=== PATIENT | female | born 1980 | race Caucasian/White ===

== ENCOUNTER 2017-12-15 19:30 | Inpatient (IN) ==
[2017-12-15] MEDS ORDERED: 0.9 % Sodium Chloride 1,000 ML ONE (19:50)
[2017-12-15] MEDS ORDERED: 0.9 % Sodium Chloride 1,000 ML IV SCH (20:00)
[2017-12-15 20:04] LABS: Bilirubin,Urine Negative (Negative); Blood,Urine Small (Negative); Clarity,Urine Clear (Clear); Color,Urine Yellow (Yellow); Glucose,Urine (UA) >=1000 mg/dL (Normal); Ketones,Urine >=160 mg/dL (Negative); Leukocyte Esterase,Urine Negative (Negative); Nitrite,Urine Negative (Negative); PH,Urine 5.5 pH Units (5.0-8.0); Protein,Urine >=300 mg/dL (Neg-Trace); Specific Gravity,Urine > 1.030 (1.010-1.025); Urobilinogen,Urine Normal (Normal)
[2017-12-15 20:06] LABS: Bacteria,Urine None Seen per hpf (None-Few); Hyaline Casts,Urine None Seen per lpf (None-Few); Squamous Epithelial Cell,Urine Many per lpf (None-Few)
[2017-12-15 20:09] LABS: Hematocrit 49.7 % (35.3-44.9); Mean Corpuscular HGB Conc 30.2 g/dL (31.6-35.5); Mean Corpuscular Hemoglobin 24.8 pg (28.0-33.3); Mean Platelet Volume 10.1 fL (9.4-12.4); Platelet Count 466 K/mcL (140-400); Red Blood Count 6.06 M/mcL (3.82-4.97); Red Cell Distribution Width 14.6 % (11.5-14.5)
[2017-12-15] MEDS ORDERED: Ondansetron 4 MG/2 ML VIAL IVP ONE (20:14)
--- NOTE | 2017-12-15 20:29 | Emergency Department Note ---
Disposition Clinical Impression: DKA (diabetic ketoacidoses) Qualifiers: Diabetes mellitus type: type 2 Diabetes mellitus complication detail: without coma Qualified Code(s): E11.10 - Type 2 diabetes mellitus with ketoacidosis without coma Disposition: Home, Self-Care Condition: Good General Adult HPI - General Chief complaint: ED Shortness of Breath/Dyspnea Stated complaint: SHAWN, N/V/ General weakness Time Seen by Provider: 12/15/17 19:36 Source: family Mode of arrival: ambulatory Limitations: no limitations Nursing Notes Reviewed: Yes Vital Signs Reviewed: Yes - History of Present Illness HPI Narrative: Female patient presents emergency complaining of nausea vomiting generalized weakness for the past 2 days. Patient is a known diabetic. Takes insulin. However she is been in [place] for the past week and forgot her insulin. She did not want purchase anymore while she is gone so she went without it. She is also not taking any since she has been home for the past 2 days because she has been nauseated and vomiting. She does not check her blood sugar at home. She is on a sliding scale she takes a standardized dose. She does report a cough and some shortness of breath but denies any chest pain. She denies any rashes. She denies any abdominal pain at this time but the states that she did have some epigastric tenderness earlier. She denies any burning on urination or trouble defecating. Pain Scale: 7 - Related Data Home Medications Medication Instructions Recorded Confirmed Bupropion HCl [Wellbutrin Xl] 150 mg PO DAILY 12/15/17 12/15/17 Buspirone HCl [Buspar] 5 mg PO TID 12/15/17 12/15/17 Canagliflozin [Invokana] 100 mg PO DAILY 12/15/17 12/15/17 Citalopram [CeleXA] 40 mg PO DAILY 12/15/17 12/15/17 Gabapentin [Neurontin] 300 mg PO BID 12/15/17 12/15/17 Insulin Aspart Prot/Insuln Asp 70 unit SQ HS 12/15/17 12/15/17 [Novolog Mix 70-30 Vial] Insulin Aspart Prot/Insuln Asp 94 units SQ ONCE 12/15/17 12/15/17 [Novolog Mix 70-30 Vial] Lisinopril-HCTZ 20-12.5 [Prinzide 20 mg PO BID 12/15/17 12/15/17 20-12.5] Metoprolol [Lopressor] 25 mg PO BID 12/15/17 12/15/17 Multivitamin [Multivitamins] 1 each PO DAILY 12/15/17 12/15/17 Niacin [Slo-Niacin] 250 mg PO DAILY 12/15/17 12/15/17 Simvastatin [Zocor] 20 mg PO DAILY 12/15/17 12/15/17 metFORMIN [Glucophage] 1,000 mg PO BID 12/15/17 12/15/17 Allergies Allergy/AdvReac Type Severity Reaction Status Date / Time No Known Allergies Allergy Verified 12/15/17 23:30 All systems ED: reviewed and negative except as stated. Review of Systems: As Per HPI Past Medical History - Past Medical History Attestation: Yes The following information was validated with the patient. Source: patient Medical history: Reports: diabetes, hyperlipidemia, hypertension Psychiatric history: Reports: anxiety, depression - Social History Smoking Status: Former smoker Smokeless Tobacco Status: No Alcohol use: Reports: rarely Drug use: Reports: none Physical Exam - General Limitations: no limitations General appearance: alert, obese - Head Head exam: atraumatic, normocephalic, normal inspection - Eye Eye exam: Present: normal appearance, PERRL, EOMI - ENT ENT exam: normal exam, normal oropharynx, mucous membranes dry - Neck Neck exam: Present: normal inspection, full ROM, trachea midline - Chest Chest inspection: Present: normal inspection, symmetric chest wall rise - Respiratory Respiratory exam: Present: normal lung sounds bilaterally. Absent: respiratory distress, accessory muscle use - Cardiovascular Cardiovascular exam: Present: regular rate, normal rhythm, normal heart sounds - Abdominal Exam Abdominal exam: Present: soft, Non-Tender. Absent: tenderness, distention, guarding, rebound, rigidity, organomegaly, Pritchett's sign, Rovsing's sign, tenderness at McBurney's Point - Extremities Exam Extremities exam: Present: normal inspection, full ROM, normal capillary refill. Absent: tenderness, pedal edema - Neurological Exam Neurological exam: Present: alert, oriented X3 - Psychiatric Psychiatric exam: Present: normal affect, normal mood - Skin Skin exam: Present: warm, dry, intact, normal color, other (Patient does have appears to be sunburn to her chest.) Course Course Narrative: Regarding basic lab workup on patient. We will give patient 2 L of saline. It does appear the patient is likely in DKA. She states she has never been in DKA before. - Reevaluation(s) Reevaluation #1: Female patient has an anion gap of 26. She is in DKA. After 2 L of fluid and Zofran she states that she is feeling remarkably better. Insulin drip has been started. We will patient to the hospital this time. Time: 21:50 - Consultations Consultation #1: Dr Jang accepted patient in stable condition. He is requesting a chest x-ray due to patient's elevated white blood cell count. I have ordered this. Time: 21:51 Vital Signs Temperature 98.1 F 12/15/17 19:37 Pulse Rate 107 12/15/17 19:37 Respiratory Rate 26 12/15/17 19:37 Blood Pressure 178/112 12/15/17 19:37 O2 Sat by Pulse Oximetry 98 12/15/17 19:37 Temperature 97.6 F 12/15/17 23:15 Pulse Rate 102 12/15/17 23:15 Respiratory Rate 22 12/15/17 23:15 Blood Pressure 184/92 12/15/17 23:15 O2 Sat by Pulse Oximetry 99 12/15/17 23:15 Oxygen Delivery Oxygen Delivery Room Air Medical Decision Making - Medical Records Medical records reviewed: Yes I reviewed the patient's medical records. - Lab Data Lab results reviewed: Yes I reviewed the patient's lab results. Result diagrams: 12/15/17 19:58 12/15/17 22:17 Lab Results 12/15/17 12/15/17 12/15/17 Range/Units 19:42 19:42 19:52 WBC (4.3-11.1) K/mcL RBC (3.82-4.97) M/mcL Hgb (11.5-15.4) g/dL Hct (35.3-44.9) % MCV (83.0-100.0) fL MCH (28.0-33.3) pg MCHC (31.6-35.5) g/dL RDW (11.5-14.5) % Plt Count (140-400) K/mcL MPV (9.4-12.4) fL Sodium (136-145) mEq/L Potassium (3.5-5.1) mEq/L Chloride (98-107) mEq/L Carbon Dioxide (23-29) mEq/L BUN (6-20) mg/dL Creatinine (0.60-1.20) mg/dL Est GFR ( Amer) (> 60) Est GFR (Non-Af Amer) (> 60) BUN/Creatinine Ratio (6-26) Glucose (70-105) mg/dL POC Glucose 393 H (70-99) mg/dL Calculated Osmolality (280-300) Calcium (8.6-10.3) mg/dL Urine Color Yellow (Yellow) Urine Clarity Clear (Clear) Urine pH 5.5 (5.0-8.0) pH Units Ur Specific [place] > 1.030 H (1.010-1.025) Urine Protein >=300 H (Neg-Trace) mg/dL Urine Glucose (UA) >=1000 H (Normal) mg/dL Urine Ketones >=160 H (Negative) mg/dL Urine Blood Small H (Negative) Urine Nitrite Negative (Negative) Urine Bilirubin Negative (Negative) Urine Urobilinogen Normal (Normal) mg/dL Ur Leukocyte Esterase Negative (Negative) Urine Microscopic RBC 5-15 H (0-3) per hpf Urine Microscopic WBC 5-15 H (0-3) per hpf Ur Squamous Epith Cells Many H (None-Few) per lpf Urine Bacteria None Seen (None-Few) per hpf Hyaline Casts None Seen (None-Few) per lpf Urine Test Negative (Negative) 12/15/17 12/15/17 12/15/17 Range/Units 19:58 19:58 21:19 WBC 20.1 H (4.3-11.1) K/mcL RBC 6.06 H (3.82-4.97) M/mcL Hgb 15.0 (11.5-15.4) g/dL Hct 49.7 H (35.3-44.9) % MCV 82.0 L (83.0-100.0) fL MCH 24.8 L (28.0-33.3) pg MCHC 30.2 L (31.6-35.5) g/dL RDW 14.6 H (11.5-14.5) % Plt Count 466 H (140-400) K/mcL MPV 10.1 (9.4-12.4) fL Sodium 125 L (136-145) mEq/L Potassium 4.0 (3.5-5.1) mEq/L Chloride 95 L (98-107) mEq/L Carbon Dioxide 4 L* (23-29) mEq/L BUN 12 (6-20) mg/dL Creatinine 1.08 (0.60-1.20) mg/dL Est GFR ( Amer) > 60 (> 60) Est GFR (Non-Af Amer) 57 L (> 60) BUN/Creatinine Ratio 11 (6-26) Glucose 392 H (70-105) mg/dL POC Glucose 357 H (70-99) mg/dL Calculated Osmolality 276 L (280-300) Calcium 8.6 (8.6-10.3) mg/dL Urine Color (Yellow) Urine Clarity (Clear) Urine pH (5.0-8.0) pH Units Ur Specific [place] (1.010-1.025) Urine Protein (Neg-Trace) mg/dL Urine Glucose (UA) (Normal) mg/dL Urine Ketones (Negative) mg/dL Urine Blood (Negative) Urine Nitrite (Negative) Urine Bilirubin (Negative) Urine Urobilinogen (Normal) mg/dL Ur Leukocyte Esterase (Negative) Urine Microscopic RBC (0-3) per hpf Urine Microscopic WBC (0-3) per hpf Ur Squamous Epith Cells (None-Few) per lpf Urine Bacteria (None-Few) per hpf Hyaline Casts (None-Few) per lpf Urine Test (Negative) - Radiology Data Radiology results reviewed: Yes I reviewed the patient's radiology results. - EKG Data EKG #1 EKG attestation: Yes I reviewed and interpreted this EKG. EKG results narrative: Sinus tachycardia at a rate of 106. RI interval is 152. QRS duration is 107. QT is 399. QTC is 5:30. No signs of acute ischemia. Poor R-wave progression. No previous EKG to compare to. Critical Care Time Critical Care Time: Yes Total Critical Care Time: 36 Attestation: Acute diabetic keto acidosis w/ severe dehydration requiring fluid resucitation ; Attestation Statement - Attestation Attestation: Dr. Gandhi note: Pt seen in conjunction w/ resident Dr Olena Horton; Please see her charting for complete documentation; I spent face to face time w/ the pt and agree w/ pts treatment and disposition; progressive weakness and polydipsia, polyuria the past 2 days. Noncompliant with any of her diabetic medications for the past week during which time she was on vacation. No focal pain at this time. Vital signs improved with fluids and insulin in the ER. Labs , (co2 of 4 )have been reviewed.
[2017-12-15 20:43] LABS: BUN/Creatinine Ratio 11 (6-26); Blood Urea Nitrogen 12 mg/dL (6-20); Calcium 8.6 mg/dL (8.6-10.3); Carbon Dioxide 4 mEq/L (23-29); Chloride 95 mEq/L (98-107); Glucose 392 mg/dL (70-105); Osmolality,Calculated 276 (280-300); Sodium 125 mEq/L (136-145); eGFR For Non-African Americans 57 (> 60)
[2017-12-15] MEDS ORDERED: *HR* Dextrose 50 % in Water (Syg) 50 ML SYRINGE IVP PRN (20:54)
[2017-12-15] MEDS: Insulin Human Regular 100 UNIT in 0.9 % Sodium Chloride 100 ML IVC SCH (21:20)
[2017-12-15] MEDS ORDERED: 0.9 % Sodium Chloride w KCl 20 MEQ/1,000 ML MLS IVC ONE (21:54)
[2017-12-15] MEDS ORDERED: 0.9 % Sodium Chloride w KCl 20 MEQ/1,000 ML MLS IVC SCH (22:00)
[2017-12-15] MEDS ORDERED: D5% in 0.45% NACL 1,000 ML IVC PRN (22:00)
[2017-12-15] MEDS ORDERED: Naloxone 0.4 MG/ML INJ IVP PRN (22:00)
[2017-12-15] MEDS ORDERED: 0.9 % Sodium Chloride 1,000 ML IVC SCH ×2 (22:00→22:20)
--- NOTE | 2017-12-15 22:34 | Internal Med History&Physical ---
<Jed Jean - Last Filed: 12/15/17 23:20> Date of Encounter: 12/15/17 Time of Encounter: 22:30 Internal Medicine - H&P: HPI Chief complaint: Nausea vomiting Admitted From: Home Plans for Post Hospital Care: Home History of present illness: Ms. Lewis is a 37 year old female with history of type 2 diabetes mellitus presents with chief complaint of nausea vomiting that started yesterday. Patient reports she was on vacation in [place] from one week and did not take her insulin with her. She reported abdominal pain, nonbloody vomiting, nausea, polyuria, polydipsia. She denied any signs of infection including eye pain, higher discharge, ear discharge, ear pain, sinus pressure, runny nose, sore throat, productive cough, fever, chills, dysuria, urinary frequency, diarrhea, rash, sick contacts. She also denied shortness of breath, chest pain , lower extremity pain. Patient was found to be in DKA and was started on IV insulin and given 2 L of normal saline. Patient is with her reports that the pills are noncompliant diabetics. Patient is on NovoLog and 90 units twice a day at home. Her last hemoglobin A1c was in June was 9.8. She denies previous history of DKA. Past Med Surg Social Fam HX - Past Medical History Medical history: diabetes, hyperlipidemia, hypertension Additional medical history: neuropathy, PCOS, anemia Psychiatric history: anxiety, depression - Past Surgical History Surgical History: no surgical history - Social History Smoking Status: Former smoker Smokeless Tobacco Status: No Alcohol use: rarely Drug use: none - Family History Mother Hx Family Cardiac Disorders: Yes Hx Family Endocrine Disorder: Yes (Diabetes mellitus) Internal Medicine - H&P: Meds Bupropion HCl [Wellbutrin Xl] 150 mg PO DAILY 12/15/17 [History] Buspirone HCl [Buspar] 5 mg PO TID 12/15/17 [History] Canagliflozin [Invokana] 100 mg PO DAILY 12/15/17 [History] Citalopram [CeleXA] 40 mg PO DAILY 12/15/17 [History] Gabapentin [Neurontin] 300 mg PO BID 12/15/17 [History] Insulin Aspart Prot/Insuln Asp [Novolog Mix 70-30 Vial] 70 unit SQ HS 12/15/17 [ History] Insulin Aspart Prot/Insuln Asp [Novolog Mix 70-30 Vial] 94 units SQ ONCE [History] Lisinopril-HCTZ 20-12.5 [Prinzide 20-12.5] 20 mg PO BID 12/15/17 [History] Metoprolol [Lopressor] 25 mg PO BID 12/15/17 [History] Multivitamin [Multivitamins] 1 each PO DAILY 12/15/17 [History] Niacin [Slo-Niacin] 250 mg PO DAILY 12/15/17 [History] Simvastatin [Zocor] 20 mg PO DAILY 12/15/17 [History] metFORMIN [Glucophage] 1,000 mg PO BID 12/15/17 [History] 3 Allergy/AdvReac Type Severity Reaction Status Date / Time No Known Allergies Allergy Verified 12/15/17 23:30 All Systems PM: A 10-system review of systems was performed and is negative for pertinent findings except as documented above in the HPI. Review of systems: Constitutional: Denies fever, chills HEENT: Denies headache, trauma, blurry vision, eye discharge, ear pain, ear discharge neck pain, sore throat, rhinorrhea Heart: Denies chest pain palpitations, LE edema Lungs: Denies shortness of breath, reports cough Abdomen: Reports abdominal pain nausea vomiting , denies diarrhea MSK: Denies back pain, falls, joint pain Kidney: Denies dysuria, hematuria Skin: Denies rash, ulcers Neuro: Denies numbness and tingling Psych: Reports axniety, denies depression - Constitutional Vitals: Temp Pulse Resp BP Pulse Ox 97.4 F L 103 20 175/104 100 12/15/17 22:00 12/15/17 22:00 12/15/17 22:00 12/15/17 22:00 12/15/17 22:00 Exam: General: pleasant, without distress HEENT: Head atraumatic, normocephalic, EOMI, PERRL, absent ear discharge or trauma, Moist Mucous Membranes, uvula midline Neck: nontender to palpation, absent lymphadenopathy, Cardiovascualr: Sinus tachycardia, no murmur, absent gallops or rubs, 1+ pedal edema bilaterally, radial pulses 2 out of 4 Lungs: Clear to auscultation bilaterally, tachypneic Abdomen: Soft nontender, nondistended positive bowel sounds, absent hepatomegaly Skin: warm and dry, absent rash, absent open wounds and nodules MSK: absent clubbing, cyanosis, joints without swelling Neuro: Cranial nerves II through XII intact, UE and LE sensation equal bilaterally, UE and LEstrength 5/5, alert oriented 3, Psych: Poor insight and judgment, anxious Internal Med - H&P Results - Labs CBC & Chem 7: 12/15/17 19:58 12/15/17 22:17 - Assessment and plan (1) DKA (diabetic ketoacidoses) Current Visit: Yes Status: Acute Assessment and plan: 37-year-old female presents with nausea vomiting found to be in diabetic ketoacidosis Patient is a type II diabetic insulin-dependent, poorly controlled, noncompliant Anion gap is 26 Bicarbonate of 4 Initiate DKA protocol We will repeat BMP, CBC, VBG him a hemoglobin A1c Patient educated on proper diabetic control and risk of DKA Qualifiers: Diabetes mellitus type: type 2 Diabetes mellitus complication detail: without coma Qualified Code(s): E11.10 - Type 2 diabetes mellitus with ketoacidosis without coma (2) History of anxiety Current Visit: Yes Status: Acute Assessment and plan: Patient appears anxious We will continue her home medications of Wellbutrin, Celexa (3) Hypertension Current Visit: Yes Status: Acute Assessment and plan: Patient has a history of hypertension We will continue her home lisinopril hydrochlorothiazide and metoprolol Qualifiers: Hypertension type: essential hypertension Qualified Code(s): I10 - Essential (primary) hypertension (4) DVT prophylaxis Current Visit: Yes Status: Acute Assessment and plan: Heparin subcutaneous (5) History of hyperlipidemia Current Visit: Yes Status: Acute Assessment and plan: Continue home niacin, simvastatin - Time Spent With Patient Total time spent is greater than 50% in coordination of care (as documented) at patient's floor/unit and/or counseling patient: <Jose Luis aJng - Last Filed: 12/16/17 05:48> Date of Encounter: 12/15/17 Time of Encounter: 23:00 Internal Medicine - H&P: HPI History of present illness: Ms. Lewis is a 37 year old female Past Med Surg Social Fam HX - Family History Mother Hx Family Cardiac Disorders: Yes Hx Family Endocrine Disorder: Yes (Diabetes mellitus) Father Age: 70 Living Status: Cause of : 70 Hx Family Cardiac Disorders: Yes (heart disease, htn, stroke, hyperlipdemia) All Systems PM: A 10-system review of systems was performed and is negative for pertinent findings except as documented above in the HPI. - Constitutional Vitals: Temp Pulse Resp BP Pulse Ox 98.2 F 84 23 135/74 100 12/16/17 03:08 12/16/17 05:32 12/16/17 03:08 12/16/17 03:08 12/16/17 03:08 Internal Med - H&P Results - Labs CBC & Chem 7: 12/16/17 02:14 12/16/17 04:06 Labs: Short CBC 12/16/17 Range/Units 02:14 WBC 22.8 H (4.3-11.1) K/mcL Hgb 13.9 (11.5-15.4) g/dL Hct 45.3 H (35.3-44.9) % Plt Count 383 (140-400) K/mcL Neutrophils # 15.1 H (1.6-8.9) K/mcL BMP 12/15/17 12/16/17 12/16/17 22:17 02:14 04:06 Sodium 126 L 130 L 128 L Potassium 4.2 3.8 4.1 Chloride 100 104 103 Carbon Dioxide 4 L* 5 L* 5 L* BUN 12 11 11 Creatinine 0.96 0.90 0.90 Glucose 324 H 170 H 208 H Calcium 7.9 L 7.6 L 8.1 L - ABG Interpretation ABG results: 12/15/17 12/15/17 22:31 23:23 ABG pH 7.06 L* ABG pCO2 14 L* ABG pO2 131 H ABG HCO3 4 L ABG Total CO2 4 L ABG O2 Saturation 98 ABG Base Excess -24 L VBG pH 6.81 L* VBG pCO2 28 L VBG pO2 55 H VBG HCO3 4 L - Time Spent With Patient Total time spent is greater than 50% in coordination of care (as documented) at patient's floor/unit and/or counseling patient: - Attending Attestation Patient seen and examined. Chart reviewed. Case discussed with resident. Agree with assessment and plan. Patient is a 37-year-old female with a history of type 2 diabetes noncompliant with her medication for the past week now presents with DKA with severe anion gap acidosis. One amp of bicarbonate was given. No evidence of a underlying infectious cause. We will hold off antibiotics for now. Continue treatment per protocol.
[2017-12-15 22:38] LABS: VBG HCO3 4 mEq/L (21-27); VBG PCO2 28 mmHg (41-51); VBG PH 6.81 pH Units (7.32-7.42); VBG PO2 55 mmHg (25-50)
[2017-12-15 22:50] LABS: BUN/Creatinine Ratio 13 (6-26); Blood Urea Nitrogen 12 mg/dL (6-20); Calcium 7.9 mg/dL (8.6-10.3); Carbon Dioxide 4 mEq/L (23-29); Chloride 100 mEq/L (98-107); Glucose 324 mg/dL (70-105); Osmolality,Calculated 274 (280-300); Potassium 4.2 mEq/L (3.5-5.1); Sodium 126 mEq/L (136-145); eGFR For Non-African Americans > 60 (> 60)
[2017-12-15 23:27] LABS: ABG Base Excess -24 mEq/L (-2 to 3); ABG HCO3 4 mEq/L (21-27); ABG Oxygen Saturation 98 % (95-98); ABG PCO2 14 mmHg (35-45); ABG PH 7.06 pH Units (7.32-7.45); ABG PO2 131 mmHg (85-104); ABG TCO2 4 mEq/L (20-26)
[2017-12-15] MEDS ORDERED: Lisinopril-HCTZ 20-12.5mg TABLET PO SCH (23:30)
[2017-12-15] MEDS: 0.45 % Sodium Chloride w/KCl 20 MEQ/1,000 ML MLS IVC SCH (23:39)
[2017-12-15] MEDS: *HR* Heparin 5,000 UNIT/ML VIAL SQ SCH (23:39)
[2017-12-16] MEDS: Lisinopril-HCTZ 20-12.5mg TABLET PO SCH ×3 (00:12→19:37)
[2017-12-16] MEDS: D5% in 0.45% NACL w KCl 20 MEQ/1,000 ML MLS IVC PRN ×5 (02:08→20:44)
[2017-12-16] MEDS: Ondansetron 4 MG/2 ML VIAL IVP PRN ×2 (02:15→19:40)
[2017-12-16] MEDS: Insulin Human Regular 100 UNIT in 0.9 % Sodium Chloride 100 ML IVC SCH ×5 (02:18→23:10)
[2017-12-16 02:25] LABS: Basophils # 0.2 K/mcL (0.0-0.2); Basophils % 0.7 %; Eosinophils # 0.1 K/mcL (0.0-0.6); Eosinophils % 0.2 %; Hematocrit 45.3 % (35.3-44.9); Hemoglobin 13.9 g/dL (11.5-15.4); Immature Granulocytes % 3.4 % (0-4); Lymphocytes # 4.6 K/mcL (0.6-4.6); Lymphocytes % 20.2 %; Mean Corpuscular HGB Conc 30.7 g/dL (31.6-35.5); Mean Corpuscular Hemoglobin 24.9 pg (28.0-33.3); Mean Corpuscular Volume 81.2 fL (83.0-100.0); Mean Platelet Volume 10.1 fL (9.4-12.4); Monocytes # 2.2 K/mcL (0.0-1.3); Monocytes % 9.4 %; Neutrophils # 15.1 K/mcL (1.6-8.9); Platelet Count 383 K/mcL (140-400); Red Blood Count 5.58 M/mcL (3.82-4.97); Red Cell Distribution Width 14.6 % (11.5-14.5); Segmented Neutrophils % 66.1 %
[2017-12-16 02:49] LABS: BUN/Creatinine Ratio 12 (6-26); Blood Urea Nitrogen 11 mg/dL (6-20); Calcium 7.6 mg/dL (8.6-10.3); Carbon Dioxide 5 mEq/L (23-29); Chloride 104 mEq/L (98-107); Glucose 170 mg/dL (70-105); Osmolality,Calculated 273 (280-300); Potassium 3.8 mEq/L (3.5-5.1); Sodium 130 mEq/L (136-145); eGFR For Non-African Americans > 60 (> 60)
[2017-12-16 04:51] LABS: BUN/Creatinine Ratio 12 (6-26); Blood Urea Nitrogen 11 mg/dL (6-20); Calcium 8.1 mg/dL (8.6-10.3); Carbon Dioxide 5 mEq/L (23-29); Chloride 103 mEq/L (98-107); Glucose 208 mg/dL (70-105); Osmolality,Calculated 271 (280-300); Potassium 4.1 mEq/L (3.5-5.1); Sodium 128 mEq/L (136-145); eGFR For Non-African Americans > 60 (> 60)
[2017-12-16] MEDS: *HR* Heparin 5,000 UNIT/ML VIAL SQ SCH ×3 (06:00→19:37)
[2017-12-16 06:39] LABS: BUN/Creatinine Ratio 13 (6-26); Blood Urea Nitrogen 11 mg/dL (6-20); Calcium 8.1 mg/dL (8.6-10.3); Carbon Dioxide 4 mEq/L (23-29); Chloride 107 mEq/L (98-107); Glucose 217 mg/dL (70-105); Osmolality,Calculated 276 (280-300); Potassium 3.6 mEq/L (3.5-5.1); Sodium 130 mEq/L (136-145); eGFR For Non-African Americans > 60 (> 60)
[2017-12-16] MEDS: BuPROPion XL (24 HR) 150 MG TABLET PO SCH (07:59)
[2017-12-16] MEDS: Gabapentin 300 MG CAPSULE PO SCH ×2 (07:59→19:37)
[2017-12-16] MEDS ORDERED: NIACIN 250 MG PO SCH (09:00)
[2017-12-16 09:41] LABS: Estimated Average Glucose 341 mg/dl; Hemoglobin A1C 13.5 %
--- NOTE | 2017-12-16 10:15 | Internal Med Progress Note ---
Hospitalist Progress Note - Encounter Date of Encounter: 12/16/17 Time of Encounter: 09:30 - Subjective Interval History: Patient is lying in bed. Complains of nausea. She had episodes of emesis last night and also vomited her pills this morning. Denies any abdominal pain. No chest pain or cough. No dysuria. - Exam Vitals: Temp Pulse Resp BP Pulse Ox 98.2 F 89 20 141/70 100 12/16/17 06:56 12/16/17 10:06 12/16/17 10:06 12/16/17 06:56 12/16/17 10:06 Exam: General: Patient is alert, no acute distress, obese oriented x 3 Respiratory: Good respiratory effort. Normal breath sounds. No wheezing or crackles. Cardiovascular: Regular rate and rhythm. s1 and s2 normal No clicks, rubs, gallops, or murmurs. No pedal edema Abdomen: Abdomen is soft, nontender. Bowel sounds are present Musculoskeletal: Spontaneously moving all extremities Skin: warm, dry, intact. Neuro: Alert oriented x 3 normal cranial nerves, no focal deficits - Assessment and Plan (1) DKA (diabetic ketoacidoses) Current Visit: Yes Status: Acute Assessment and Plan: Remains acidotic. Continue insulin drip and D5 infusion. Continue management per DKA protocol. Monitor basic panel. Keep nothing by mouth. Continue IV fluids. (2) Hypertension Current Visit: Yes Status: Chronic Assessment and Plan: Blood pressure elevated this morning. We will place her on intravenous medications as needed as she is not tolerating oral medications at this time. (3) Nausea and vomiting Current Visit: Yes Status: Acute Assessment and Plan: Patient having episodes of intractable nausea and vomiting. Could be related to diabetic gastroparesis. We will treat symptomatically. Patient on multiple SSRIs which can interact with Reglan. Will avoid this medication for now. However if symptoms do not improve will consider trial of Reglan. DVT Prophylaxis: Will place patient on subcutaneous heparin - Time Spent with Patient Total time spent is greater than 50% in coordination of care (as documented) at patient's floor/unit and/or counseling patient: Internal Medicine: Result - Labs CBC & Chem 7: 12/16/17 02:14 12/16/17 06:07 Labs: Short CBC 12/16/17 Range/Units 02:14 WBC 22.8 H (4.3-11.1) K/mcL Hgb 13.9 (11.5-15.4) g/dL Hct 45.3 H (35.3-44.9) % Plt Count 383 (140-400) K/mcL Neutrophils # 15.1 H (1.6-8.9) K/mcL BMP 12/15/17 12/16/17 12/16/17 22:17 02:14 04:06 Sodium 126 L 130 L 128 L Potassium 4.2 3.8 4.1 Chloride 100 104 103 Carbon Dioxide 4 L* 5 L* 5 L* BUN 12 11 11 Creatinine 0.96 0.90 0.90 Glucose 324 H 170 H 208 H Calcium 7.9 L 7.6 L 8.1 L 12/16/17 06:07 Sodium 130 L Potassium 3.6 Chloride 107 Carbon Dioxide 4 L* BUN 11 Creatinine 0.84 Glucose 217 H Calcium 8.1 L - ABG Interpretation ABG results: ABG ABG pH 7.06 pH Units (7.32-7.45) L* 12/15/17 23:23 ABG pCO2 14 mmHg (35-45) L* 12/15/17 23:23 ABG pO2 131 mmHg (85-104) H 12/15/17 23:23 ABG O2 Saturation 98 % (95-98) 12/15/17 23:23 Consult Discharge Plan - Plan Referrals: Veronica Rose, [employer] [Primary Care Provider] - (1) DKA (diabetic ketoacidoses) Qualifiers: Diabetes mellitus type: type 2 Diabetes mellitus complication detail: without coma Qualified Code(s): E11.10 - Type 2 diabetes mellitus with ketoacidosis without coma (2) Hypertension Qualifiers: Hypertension type: essential hypertension Qualified Code(s): I10 - Essential (primary) hypertension (3) Nausea and vomiting Qualifiers: Vomiting type: cyclical vomiting Vomiting Intractability: intractable Qualified Code(s): G43.A1 - Cyclical vomiting, intractable
[2017-12-16] MEDS ORDERED: *HR* Metoprolol 5 MG/5 ML VIAL IVP PRN (10:16)
[2017-12-16] MEDS: Metoclopramide 10 MG/2 ML VIAL IVP PRN (11:18)
[2017-12-16] MEDS: 0.45 % Sodium Chloride w/KCl 20 MEQ/1,000 ML MLS IVC SCH ×2 (11:25→12:58)
--- NOTE | 2017-12-16 13:07 | Electrocardiograph Report ---
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
[2017-12-16 13:13] LABS: BUN/Creatinine Ratio 10 (6-26); Blood Urea Nitrogen 9 mg/dL (6-20); Calcium 8.2 mg/dL (8.6-10.3); Carbon Dioxide 11 mEq/L (23-29); Chloride 105 mEq/L (98-107); Glucose 185 mg/dL (70-105); Osmolality,Calculated 273 (280-300); Potassium 3.2 mEq/L (3.5-5.1); Sodium 130 mEq/L (136-145); eGFR For Non-African Americans > 60 (> 60)
[2017-12-16 15:24] LABS: BUN/Creatinine Ratio 10 (6-26); Blood Urea Nitrogen 9 mg/dL (6-20); Calcium 8.3 mg/dL (8.6-10.3); Carbon Dioxide 11 mEq/L (23-29); Chloride 106 mEq/L (98-107); Glucose 180 mg/dL (70-105); Osmolality,Calculated 275 (280-300); Sodium 131 mEq/L (136-145); eGFR For Non-African Americans > 60 (> 60)
[2017-12-16 18:52] LABS: BUN/Creatinine Ratio 9 (6-26); Blood Urea Nitrogen 7 mg/dL (6-20); Calcium 8.5 mg/dL (8.6-10.3); Carbon Dioxide 11 mEq/L (23-29); Chloride 107 mEq/L (98-107); Glucose 174 mg/dL (70-105); Osmolality,Calculated 274 (280-300); Potassium 3.2 mEq/L (3.5-5.1); Sodium 131 mEq/L (136-145); eGFR For Non-African Americans > 60 (> 60)
[2017-12-16 22:43] LABS: BUN/Creatinine Ratio 10 (6-26); Blood Urea Nitrogen 7 mg/dL (6-20); Calcium 8.7 mg/dL (8.6-10.3); Carbon Dioxide 14 mEq/L (23-29); Chloride 107 mEq/L (98-107); Glucose 150 mg/dL (70-105); Osmolality,Calculated 277 (280-300); Potassium 2.8 mEq/L (3.5-5.1); Sodium 133 mEq/L (136-145); eGFR For Non-African Americans > 60 (> 60)
[2017-12-16] MEDS ORDERED: Dextrose Gel 15 GM/37.5 ML TUBE PO PRN ×2 (23:09)
[2017-12-16] MEDS ORDERED: *HR* Dextrose 50 % in Water (Syg) 50 ML SYRINGE IVP PRN (23:09)
[2017-12-16] MEDS ORDERED: D5% in Water 1,000 ML IVC PRN (23:09)
[2017-12-16] MEDS ORDERED: Potassium Chloride 40 MEQ, Lidocaine 1% 2 ML in D5% in Water 500 ML IVPB ONE (23:11)
[2017-12-16] MEDS ORDERED: Insulin DETEMIR 100 UNIT/ML X5UNITS SQ SCH (23:15)
[2017-12-16] MEDS ORDERED: Potassium Chloride Elixir 20 MEQ/15 ML UDC PO ONE (23:24)
[2017-12-17] MEDS ORDERED: Insulin LISPRO 300 UNITS/3 ML VIAL SQ SCH
[2017-12-17 02:30] LABS: BUN/Creatinine Ratio 7 (6-26); Blood Urea Nitrogen 7 mg/dL (6-20); Calcium 8.6 mg/dL (8.6-10.3); Carbon Dioxide 10 mEq/L (23-29); Chloride 104 mEq/L (98-107); Glucose 250 mg/dL (70-105); Osmolality,Calculated 280 (280-300); Potassium 4.1 mEq/L (3.5-5.1); Sodium 132 mEq/L (136-145); eGFR For Non-African Americans 59 (> 60)
[2017-12-17 04:59] LABS: BUN/Creatinine Ratio 9 (6-26); Blood Urea Nitrogen 7 mg/dL (6-20); Calcium 8.8 mg/dL (8.6-10.3); Carbon Dioxide 8 mEq/L (23-29); Chloride 105 mEq/L (98-107); Glucose 289 mg/dL (70-105); Osmolality,Calculated 283 (280-300); Sodium 132 mEq/L (136-145); eGFR For Non-African Americans > 60 (> 60)
[2017-12-17] MEDS: Ondansetron 4 MG/2 ML VIAL IVP PRN ×2 (05:13→19:42)
[2017-12-17] MEDS: *HR* Heparin 5,000 UNIT/ML VIAL SQ SCH ×3 (05:14→22:04)
[2017-12-17] MEDS: D5% in 0.45% NACL w KCl 20 MEQ/1,000 ML MLS IVC PRN (05:15)
[2017-12-17] MEDS: Metoclopramide 10 MG/2 ML VIAL IVP PRN (07:31)
[2017-12-17 08:19] LABS: ABG Base Excess -7 mEq/L (-2 to 3); ABG HCO3 17 mEq/L (21-27); ABG Oxygen Saturation 98 % (95-98); ABG PCO2 28 mmHg (35-45); ABG PH 7.38 pH Units (7.32-7.45); ABG PO2 97 mmHg (85-104); ABG TCO2 17 mEq/L (20-26)
[2017-12-17] MEDS: Gabapentin 300 MG CAPSULE PO SCH ×2 (09:11→19:42)
[2017-12-17] MEDS: Lisinopril-HCTZ 20-12.5mg TABLET PO SCH ×2 (09:11→19:42)
[2017-12-17] MEDS: BuPROPion XL (24 HR) 150 MG TABLET PO SCH (09:12)
[2017-12-17 09:15] LABS: BUN/Creatinine Ratio 9 (6-26); Blood Urea Nitrogen 6 mg/dL (6-20); Calcium 8.3 mg/dL (8.6-10.3); Carbon Dioxide 16 mEq/L (23-29); Chloride 107 mEq/L (98-107); Glucose 168 mg/dL (70-105); Osmolality,Calculated 281 (280-300); Potassium 2.8 mEq/L (3.5-5.1); Sodium 135 mEq/L (136-145); eGFR For Non-African Americans > 60 (> 60)
[2017-12-17] MEDS ORDERED: Potassium Chloride 40 MEQ, Lidocaine 1% 2 ML in D5% in Water 500 ML IVPB ONE (09:28)
[2017-12-17] MEDS: Insulin Human Regular 100 UNIT in 0.9 % Sodium Chloride 100 ML IVC SCH (10:13)
--- NOTE | 2017-12-17 10:43 | Internal Med Progress Note ---
Hospitalist Progress Note - Encounter Date of Encounter: 12/17/17 Time of Encounter: 09:25 - Subjective Interval History: Patient is currently lying in bed. Easy to awake. Denies any abdominal pain. Does continue to have nausea. Her anion gap improved overnight and patient's insulin drip was stopped and she was given Levemir. However since then her gap has again increased and BMP shows worsening acidosis. As such she has been placed back on insulin drip and IV fluids. 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 Patient denies any chest pain or palpitations. No diarrhea. - Exam Vitals: Temp Pulse Resp BP Pulse Ox 98.4 F 101 18 140/74 100 12/17/17 07:44 12/17/17 07:44 12/17/17 07:44 12/17/17 07:44 12/17/17 07:44 Exam: General: Patient is alert, mild distress, oriented x 3, obese Respiratory: Good respiratory effort. Normal breath sounds. No wheezing or crackles. Cardiovascular: Regular rate and rhythm. s1 and s2 normal No clicks, rubs, gallops, or murmurs. No pedal edema Abdomen: Abdomen is soft, nontender. Bowel sounds are present Musculoskeletal: Spontaneously moving all extremities Skin: warm, dry, intact. Neuro: Alert oriented x 3 normal cranial nerves, no focal deficits - Assessment and Plan (1) DKA (diabetic ketoacidoses) Current Visit: Yes Status: Acute Assessment and Plan: Patient remains acidotic. Bicarbonate this morning was 8. Since then it has improved to 16. Patient slowly becoming hyperchloremic. We will decrease IV fluid rate. Currently she is on D5 half and this with potassium supplements. She does have hypokalemia and this will be repleted. We will continue IV insulin drip to bicarbonate levels stabilize greater than 16. Also treat underlying nausea. Continue to monitor blood sugars closely. Moderate risk for complications. (2) Hypertension Current Visit: Yes Status: Chronic Assessment and Plan: Blood pressure elevated this morning. Continue metoprolol, lisinopril and hydrochlorothiazide. (3) Nausea and vomiting Current Visit: Yes Status: Acute Assessment and Plan: Patient nauseated this morning. Started on Reglan when necessary. Will assess response. Possibly due to underlying gastroparesis. DVT Prophylaxis: On subcutaneous heparin - Time Spent with Patient Total time spent is greater than 50% in coordination of care (as documented) at patient's floor/unit and/or counseling patient: Internal Medicine: Result - Labs CBC & Chem 7: 12/16/17 02:14 12/17/17 08:40 Labs: BMP 12/16/17 12/16/17 12/17/17 18:14 22:11 01:56 Sodium 131 L 133 L 132 L Potassium 3.2 L 2.8 L 4.1 D Chloride 107 107 104 Carbon Dioxide 11 L 14 L 10 L* BUN 7 7 7 Creatinine 0.78 0.73 1.06 Glucose 174 H 150 H 250 H Calcium 8.5 L 8.7 8.6 12/17/17 12/17/17 04:29 08:40 Sodium 132 L 135 L Potassium 4.0 2.8 L D Chloride 105 107 Carbon Dioxide 8 L* 16 L BUN 7 6 Creatinine 0.80 0.70 Glucose 289 H 168 H Calcium 8.8 8.3 L - ABG Interpretation ABG results: ABG ABG pH 7.38 pH Units (7.32-7.45) 12/17/17 08:16 ABG pCO2 28 mmHg (35-45) L 12/17/17 08:16 ABG pO2 97 mmHg (85-104) 12/17/17 08:16 ABG O2 Saturation 98 % (95-98) 12/17/17 08:16 Consult Discharge Plan - Plan Referrals: Veronica Rose, [employer] [Primary Care Provider] - (1) DKA (diabetic ketoacidoses) Qualifiers: Diabetes mellitus type: type 2 Diabetes mellitus complication detail: without coma Qualified Code(s): E11.10 - Type 2 diabetes mellitus with ketoacidosis without coma (2) Hypertension Qualifiers: Hypertension type: essential hypertension Qualified Code(s): I10 - Essential (primary) hypertension (3) Nausea and vomiting Qualifiers: Vomiting type: cyclical vomiting Vomiting Intractability: intractable Qualified Code(s): G43.A1 - Cyclical vomiting, intractable
[2017-12-17 13:54] LABS: BUN/Creatinine Ratio 10 (6-26); Blood Urea Nitrogen 6 mg/dL (6-20); Calcium 8.5 mg/dL (8.6-10.3); Carbon Dioxide 18 mEq/L (23-29); Chloride 106 mEq/L (98-107); Glucose 95 mg/dL (70-105); Osmolality,Calculated 279 (280-300); Potassium 3.1 mEq/L (3.5-5.1); Sodium 136 mEq/L (136-145); eGFR For Non-African Americans > 60 (> 60)
[2017-12-17] MEDS ORDERED: Insulin DETEMIR 100 UNIT/ML X5UNITS SQ ONE ×2 (14:08→21:32)
[2017-12-17 19:32] LABS: BUN/Creatinine Ratio 10 (6-26); Blood Urea Nitrogen 7 mg/dL (6-20); Calcium 8.4 mg/dL (8.6-10.3); Carbon Dioxide 17 mEq/L (23-29); Chloride 101 mEq/L (98-107); Glucose 282 mg/dL (70-105); Osmolality,Calculated 286 (280-300); Potassium 3.6 mEq/L (3.5-5.1); Sodium 134 mEq/L (136-145); eGFR For Non-African Americans > 60 (> 60)
[2017-12-18] MEDS: *HR* Heparin 5,000 UNIT/ML VIAL SQ SCH (05:10)
[2017-12-18 05:48] LABS: BUN/Creatinine Ratio 10 (6-26); Blood Urea Nitrogen 7 mg/dL (6-20); Calcium 8.9 mg/dL (8.6-10.3); Carbon Dioxide 19 mEq/L (23-29); Chloride 102 mEq/L (98-107); Glucose 266 mg/dL (70-105); Osmolality,Calculated 293 (280-300); Potassium 3.5 mEq/L (3.5-5.1); Sodium 138 mEq/L (136-145); eGFR For Non-African Americans > 60 (> 60)
[2017-12-18 07:28] VITALS: BP 141/90
[2017-12-18] MEDS ORDERED: Insulin NPH/REG 70/30 100 UNIT/ML (x5UNIT) SQ SCH (07:30)
[2017-12-18] MEDS: BuPROPion XL (24 HR) 150 MG TABLET PO SCH (08:14)
[2017-12-18] MEDS: Lisinopril-HCTZ 20-12.5mg TABLET PO SCH (08:15)
[2017-12-18] MEDS: Gabapentin 300 MG CAPSULE PO SCH (08:15)
[2017-12-18 09:36] LABS: Basophils # 0.1 K/mcL (0.0-0.2); Basophils % 0.5 %; Eosinophils % 0.1 %; Hematocrit 36.8 % (35.3-44.9); Immature Granulocytes % 0.2 % (0-4); Lymphocytes # 3.9 K/mcL (0.6-4.6); Lymphocytes % 38.2 %; Mean Corpuscular HGB Conc 33.2 g/dL (31.6-35.5); Mean Corpuscular Hemoglobin 25.1 pg (28.0-33.3); Mean Platelet Volume 10.2 fL (9.4-12.4); Monocytes # 0.9 K/mcL (0.0-1.3); Monocytes % 8.5 %; Neutrophils # 5.4 K/mcL (1.6-8.9); Platelet Count 295 K/mcL (140-400); Red Blood Count 4.86 M/mcL (3.82-4.97); Segmented Neutrophils % 52.5 %
[2017-12-18 09:37] LABS: Hemoglobin 12.2 g/dL (11.5-15.4); Mean Corpuscular Volume 75.7 fL (83.0-100.0)
--- NOTE | 2017-12-18 09:43 | Discharge Summary ---
- NOTES TO OUTPATIENT PROVIDER Notes to Outpatient Provider: Patient with history of diabetes mellitus type 2 who was hospitalized here with diabetic ketoacidosis along with intractable nausea and vomiting. She was treated per DKA protocol with IV fluids and insulin. She was severely acidotic with a bicarbonate of 4. Eventually this improved and she is now doing better. Her DKA has resolved. She is tolerating oral diet but remains nauseated. Most likely patient has underlying diabetic gastroparesis. She is advised to take small bites and frequent small meals since large meals. She will be discharged today and will follow up with her primary care provider for further management. She will also be discharged on Reglan to be used as needed. She does take antidepressants which can interact with Reglan and needs to be cautious about this medication and watch for side effects. Date of Encounter: 12/18/17 Time of Encounter: 09:00 - Discharge Diagnosis (1) DKA (diabetic ketoacidoses) Priority: Primary Status: Acute Qualifiers: Diabetes mellitus type: type 2 Diabetes mellitus complication detail: without coma Qualified Code(s): E11.10 - Type 2 diabetes mellitus with ketoacidosis without coma (2) Hypertension Priority: Secondary Status: Chronic Qualifiers: Hypertension type: essential hypertension Qualified Code(s): I10 - Essential (primary) hypertension (3) Nausea and vomiting Priority: Secondary Status: Acute Qualifiers: Vomiting type: cyclical vomiting Vomiting Intractability: intractable Qualified Code(s): G43.A1 - Cyclical vomiting, intractable (4) Diabetic gastroparesis Priority: Secondary Status: Suspected Hospital course: Ms. Lewis is a 37 year old female patient with history of diabetes mellitus type 2 who was hospitalized here with diabetic ketoacidosis along with intractable nausea and vomiting. She was treated per DKA protocol with IV fluids and insulin. She was severely acidotic with a bicarbonate of 4. Eventually this improved and she is now doing better. Her DKA has resolved. She is tolerating oral diet but remains nauseated. Most likely patient has underlying diabetic gastroparesis. She is advised to take small bites and frequent small meals since large meals. She will be discharged today and will follow up with her primary care provider for further management. She will also be discharged on Reglan to be used as needed. She does take antidepressants which can interact with Reglan and needs to be cautious about this medication and watch for side effects. Discharge discussed with: patient, nurse - Time Spent with Patient Total time spent providing and/or coordinating discharge services: Less than 30 minutes (25 min) - Discharge Medications Prescriptions: Metoclopramide [Reglan] 10 mg PO Q6HR PRN #30 tablet PRN Reason: Nausea Home Medications: Buspirone HCl [Buspar] 5 mg PO TID 12/15/17 [History] Canagliflozin [Invokana] 100 mg PO DAILY 12/15/17 [History] Citalopram [CeleXA] 40 mg PO DAILY 12/15/17 [History] Gabapentin [Neurontin] 300 mg PO BID 12/15/17 [History] Insulin Aspart Prot/Insuln Asp [Novolog Mix 70-30 Vial] 84 unit SQ HS 12/15/17 [ History] Insulin Aspart Prot/Insuln Asp [Novolog Mix 70-30 Vial] 90 units SQ QAM [History] Lisinopril-HCTZ 20-12.5 [Prinzide 20-12.5] 1 tab PO BID 12/15/17 [History] Metoprolol [Lopressor] 25 mg PO BID 12/15/17 [History] Multivitamin [Multivitamins] 1 each PO DAILY 12/15/17 [History] Niacin [Slo-Niacin] 250 mg PO DAILY 12/15/17 [History] Simvastatin [Zocor] 20 mg PO DAILY 12/15/17 [History] metFORMIN [Glucophage] 1,000 mg PO BID 12/15/17 [History] BuPROPion XL (24 HR) [Wellbutrin Xl] 150 mg PO DAILY 12/16/17 [History] Metoclopramide [Reglan] 10 mg PO Q6HR PRN #30 tablet 12/18/17 [Rx] Allergies/Adverse Reactions: 3 Allergy/AdvReac Type Severity Reaction Status Date / Time No Known Allergies Allergy Verified 12/16/17 10:21 Date of admission: 12/16/17 17:27 Primary care physician: Veronica Rose CNP Discharging clinician: Teresa Carroll Anticipated date of discharge: 12/18/17 - Constitutional Vitals: Temp Pulse Resp BP Pulse Ox 98.3 F 102 18 141/90 99 12/18/17 07:23 12/18/17 07:23 12/18/17 07:23 12/18/17 07:23 12/18/17 07:23 General appearance: Present: cooperative, A&O X 3, pleasant, obese, answers questions appropriately Exam: . - Respiratory Respiratory exam: Present: CTAB. Absent: accessory muscle use, rales, rhonchi, wheezes - Cardiovascular Cardiovascular exam: Present: RRR, +S1, +S2. Absent: diastolic murmur, gallop, rubs, systolic murmur - Patient Status Disposition: Home, Self-Care Condition: Good Functional capacity at discharge: independent ambulation Overall status at discharge: patient is back to baseline - Discharge Instructions Instructions: Diabetes Mellitus Type 2 in Adults (DC) Follow Up With: Veronica Rose, [employer] [Primary Care Provider] - 12/24/17 9:00 am - Diet and Activity Activity: increase activity as tolerated Diet: diabetic diet (Eat small and frequent meals)
== END 2017-12-18 10:36 | disposition home or self-care (01) | DRG 639 ==
LOC: EMEROOARM 19:30 → 2NNU 19:30 → SUATTDRO 21:31 → 2NNU 21:50
PROVIDERS: ADMIT Internal Medicine; ATTEND Internal Medicine